=== PATIENT | female | born 1995 ===

== ENCOUNTER 2018-12-20 03:08 | Inpatient (IN) | payer OTHER ==
[~2018-12-20] VITALS: Ht 160 cm; Wt 70.8 kg
[~2018-12-20 03:08] MED LIST: PRENATAL CAPLE1 EACH PO
== END 2018-12-20 11:22 | disposition designated cancer center or children's hospital (05) | DRG 831 ==
LOC: LDR 03:08
PROVIDERS: ADMIT Obstetrics & Gynecology
PROC: 4A1HXCZ Monitoring of Products of Conception, Cardiac Rate, External Approach (ICD-10-PCS; principal; 2018-12-20)
PROC: BY4CZZZ Ultrasonography of Second Trimester, Single Fetus (ICD-10-PCS; 2018-12-20)
DX: O64.8XX0 Obstructed labor due to other malposition and malpresentation, not applicable or unspecified (principal); O60.02 Preterm labor without delivery, second trimester; O42.912 Preterm premature rupture of membranes, unspecified as to length of time between rupture and onset of labor, second trimester; Z3A.29 29 weeks gestation of pregnancy

== ENCOUNTER → 2020-03-09 | Day surgery (SDC) | payer OTHER ==
[~2020-03-09] VITALS: Ht 160 cm; Wt 74.8 kg
[~2020-03-09] MED LIST changes: +KETO10TA2 PO; +MONDOXYNE NL100 MG PO
== END | disposition home or self-care (01) ==
LOC: ER 05:05 → CIR.AMB 15:12
PROVIDERS: ATTEND Obstetrics & Gynecology
DX: O03.4 Incomplete spontaneous abortion without complication (principal); Z20.828 Contact with and (suspected) exposure to other viral communicable diseases

== ENCOUNTER 2023-11-18 07:27 | Outpatient (CLI) | payer OTHER | END 2023-11-18 07:37 | disposition home or self-care (01) | LOC: PPH VACUNA 07:27 | PROVIDERS: ATTEND Emergency Medicine Pediatric Emergency Medicine | DX: Z23 Encounter for immunization (principal) ==